=== PATIENT | male | born 1955 | race Caucasian/White ===

== ENCOUNTER 2023-05-06 14:37 | Inpatient (IN) | payer OTHER ==
[~2023-05-06] VITALS: Ht 180.3 cm; Wt 104.9 kg
[~2023-05-06 14:37] MED LIST: HYDACE5 PO; KETO10 PO; STOMACH MED
[2023-05-06] MEDS ORDERED: FURO20 PO (15:18)
[2023-05-06] MEDS ORDERED: LISI20 PO (15:18)
[2023-05-06] MEDS ORDERED: POTA8 PO (15:18)
[2023-05-06 15:58] LABS: BASOPHILS ABSOLUTE AUTO 0.03 K/mm3 (0.00-0.23); BASOPHILS PERCENT AUTO 0 % (0-2); EOSINOPHILS ABSOLUTE AUTO 0.11 K/mm3 (0.00-0.68); EOSINOPHILS PERCENT AUTO 2 % (0-6); Hematocrit 40.6 % (37.0-53.0); Hemoglobin 13.7 g/dL (13.5-17.5); IMMATURE GRAN ABSOLUTE AUTO 0.02 K/mm3 (0.00-0.10); IMMATURE GRAN PERCENT AUTO 0 % (0-1); LYMPHOCYTES ABSOLUTE AUTO 0.91 K/mm3 (0.84-5.20); LYMPHOCYTES PERCENT AUTO 13 % (21-46); MONOCYTES PERCENT AUTO 11 % (4-13); Mean Corpuscular HGB 30.4 pg (26.0-34.0); Mean Corpuscular HGB Conc 33.7 g/dL (31.5-36.5); Mean Corpuscular Volume 90 fL (80-100); Mean Platelet Volume 11.1 fL (9.1-12.4); NEUTROPHILS ABSOLUTE AUTO 5.41 K/mm3 (1.96-9.15); NEUTROPHILS PERCENT AUTO 74 % (41-73); Platelet Count 179 K/mm3 (150-400); RDW Coefficient Variation 14.1 % (11.7-14.2); RDW Standard Deviation 46.6 fL (35.1-46.3); White Blood Cell Count 7.28 K/mm3 (4.00-11.30)
[2023-05-06 16:09] LABS: Albumin, Blood 3.3 g/dL (3.4-5.0); Albumin/Globulin Ratio 0.8 (0.8-1.8); Bilirubin, Total 0.5 mg/dL (0.1-1.0); Bun/Creatinine Ratio 11.9 (12.0-20.0); Calcium, Blood 8.4 mg/dL (8.5-10.1); Creatinine, Blood 1.09 mg/dL (0.60-1.20); Globulin, Blood 4.1 g/dL (2.2-4.0); Potassium, Blood 3.2 mmol/L (3.5-5.5); Total Protein, Blood 7.4 g/dL (6.4-8.2)
[2023-05-06 17:07] LABS: Influenza A, PCR NEGATIVE (NEGATIVE); Influenza B, PCR NEGATIVE (NEGATIVE); SARS-Cov-2 (COVID-19) PCR, MMC NEGATIVE (NEGATIVE)
[2023-05-06 17:08] LABS: Resp Syncytial Virus, PCR POSITIVE (NEGATIVE)
[2023-05-07] MEDS ORDERED: VITAMIN D310 MC4 PO (07:57)
[2023-05-07 08:05] VITALS: BP 179/96
[2023-05-07 08:26] LABS: Bun/Creatinine Ratio 18.6 (12.0-20.0); Calcium, Blood 9.1 mg/dL (8.5-10.1); Creatinine, Blood 1.13 mg/dL (0.60-1.20); Potassium, Blood 3.6 mmol/L (3.5-5.5)
[2023-05-07 10:21] VITALS: BP 162/92
[2023-05-07 12:56] VITALS: BP 143/86
[2023-05-07 16:37] VITALS: BP 173/88
--- NOTE | 2023-05-07 17:50 | NUR ---
SHIFT SUMMARY. PT ARRIVED ON UNIT EARLY IN SHIFT. AOX4, PLEASANT, COOPERATIVE WITH CARE. SBA OOB TO COMMODE. USES URINAL INDEPENDENTLY. HAS NOT COMPLAINED OF PAIN SINCE ARRIVAL. TELE ON RUNNING NSR TO TACHYCARDIA WITH NO EVENTS THUS FAR. SATTING WELL ON 3 L O2 WHILE AWAKE. BIPAP AVAILABLE AT BEDSIDE IF NEEDED. BECOMES DYSPNEIC WITH EXERTION BUT IS ABLE TO CONTINUE TO BREATHE WELL AFTER BEING GIVEN TIME TO REST. HAS BEEN TACHYCARDIC THROUGHOUT SHIFT. HAS HAD CONSISTENT OUTPUT USING URINAL INDEPENDENTLY, LASIX ADMINISTERED ON SCHEDULE WITHOUT DIFFICULTY. NO COMPLAINTS OF PAIN THUS FAR. GOOD PO INTAKE. PRECAUTIONS FOR BEING RSV POSITIVE. SBP HAS SPORADICALLY BEEN >160MMHG BUT IS CONTROLLED VIA PRN IV HYDRALAZINE. USES CALL LIGHT APPROPRIATELY. BED LOCKED IN LOWEST POSITION. CALL LIGHT LEFT WITHIN REACH.
[2023-05-07 20:57] VITALS: BP 141/76
[2023-05-07 23:16] VITALS: BP 158/95
[2023-05-08 03:03] VITALS: BP 136/69
[2023-05-08 06:01] LABS: BASOPHILS ABSOLUTE AUTO 0.02 K/mm3 (0.00-0.23); BASOPHILS PERCENT AUTO 0 % (0-2); EOSINOPHILS ABSOLUTE AUTO 0.02 K/mm3 (0.00-0.68); EOSINOPHILS PERCENT AUTO 0 % (0-6); Hematocrit 43.9 % (37.0-53.0); Hemoglobin 14.6 g/dL (13.5-17.5); IMMATURE GRAN ABSOLUTE AUTO 0.15 K/mm3 (0.00-0.10); IMMATURE GRAN PERCENT AUTO 1 % (0-1); LYMPHOCYTES ABSOLUTE AUTO 0.49 K/mm3 (0.84-5.20); LYMPHOCYTES PERCENT AUTO 3 % (21-46); MONOCYTES ABSOLUTE AUTO 1.07 K/mm3 (0.16-1.47); MONOCYTES PERCENT AUTO 6 % (4-13); Mean Corpuscular HGB 30.2 pg (26.0-34.0); Mean Corpuscular HGB Conc 33.3 g/dL (31.5-36.5); Mean Corpuscular Volume 91 fL (80-100); Mean Platelet Volume 10.8 fL (9.1-12.4); NEUTROPHILS ABSOLUTE AUTO 16.69 K/mm3 (1.96-9.15); NEUTROPHILS PERCENT AUTO 91 % (41-73); Platelet Count 238 K/mm3 (150-400); RDW Coefficient Variation 14.6 % (11.7-14.2); RDW Standard Deviation 48.1 fL (35.1-46.3); Red Blood Cell Count 4.83 M/mm3 (4.30-5.90); White Blood Cell Count 18.44 K/mm3 (4.00-11.30)
[2023-05-08 06:23] LABS: BAND PERCENT MAN 4 % (0-8); BASOPHILS PERCENT MAN 0 % (0-2); EOSINOPHILS PERCENT MAN 0 % (0-6); LYMPHOCYTES ABSOLUTE MAN 0.36 K/mm3 (0.84-5.20); LYMPHOCYTES PERCENT MAN 2 % (21-46); MONOCYTES ABSOLUTE MAN 0.92 K/mm3 (0.16-1.47); MONOCYTES PERCENT MAN 5 % (4-13); NEUTROPHILS ABSOLUTE MAN 17.14 K/mm3 (1.96-9.15); SEG NEUTROPHILS PERCENT MAN 89 % (41-73); TOTAL CELLS COUNTED 100
[2023-05-08 06:38] LABS: Albumin, Blood 3.3 g/dL (3.4-5.0); Albumin/Globulin Ratio 0.8 (0.8-1.8); Bilirubin, Total 0.6 mg/dL (0.1-1.0); Bun/Creatinine Ratio 20.3 (12.0-20.0); Calcium, Blood 8.8 mg/dL (8.5-10.1); Creatinine, Blood 1.28 mg/dL (0.60-1.20); Globulin, Blood 4.4 g/dL (2.2-4.0); Potassium, Blood 3.5 mmol/L (3.5-5.5); Total Protein, Blood 7.7 g/dL (6.4-8.2)
--- NOTE | 2023-05-08 06:52 | NUR ---
SHIFT SUMMARY A/Ox4 AND COOPERATIVE WITH CARE. ANSWERS QUESTIONS APPROPRIALTEY AND ABLE TO MAKE HIS NEEDS KNOWN. NO ACUTE EVENTS OVERNIGHT. CARDIAC, REMAINS IN SR-ST 90-100's WITH NO COMPLAINTS OF CP OR PRESSURE T/O THE NIGHT. SBP CONTINUES TO BE SLIGHTLY ELEVATED RANGING 140-150's. RESPIRATORY, MAINTAINS SPO2 >90% ON 3L VIA OXYMIZER. INCREASED WORK OF BREATHING WITH RR RANGING 26-32. REPORTS INTERMITTENT SOB EVEN WHEN AT REST. DR. KIMBROUGH NOTIFIED WITH NO NEW ORDERS GIVEN. CONTINUES TO INTERMITTENTLY USE THE BiPAP 10/5 30% FiO2 WHEN FEELING MORE SOB OR WHEN SLEEPING. CONTINUES TO ENDORSE INTERMITTENT PLEURITIC PAIN. GI/, ABLE TO INDEPENDENTLY USE URINAL AT BEDSIDE. NO BM THIS SHIFT. ASSESSED PT FOR RISKS OF ANY IGNITION SOURCES WELL BEHAVIORS FOR INCREASED RISKS OF FIRE DANGER. PT EDUCATED ON COMMON SOURCES OF IGNITION WELL NEED TO KEEP A SAFE ENVIRONMENT. PT VOICED UNDERSTANDING. NO NEW ORDERS AT THIS TIME, WILL REPORT TO ONCOMING RN. TERESSA HERNÁNDEZ OF THIS NOTE.
[2023-05-08 08:30] VITALS: BP 159/85
[2023-05-08 11:56] VITALS: BP 162/86
--- NOTE | 2023-05-08 13:16 | NUR ---
Telephone report given to SOPHIA Ramon. Pt will be transferring to room 330 on Medical floor.
--- NOTE | 2023-05-08 13:38 | NUR ---
PT TRANSFERRED UP TO MEDICAL FLOOR IN BED.
[2023-05-08 13:42] VITALS: BP 147/85
[2023-05-08 14:44] VITALS: BP 165/85
[2023-05-08 19:43] VITALS: BP 152/86
--- NOTE | 2023-05-08 20:07 | NUR ---
SHIFT SUMMARY PATIENT GETS UP TO BATHROOM WITHOUT CALLING EVEN THOUGH AOX4, HE IS FORGETFUL AND NOT AWARE OF LIMITATIONS. PATIENT FOUND IN BATHROOM WITH OXYMIZER OFF, GIVEN NASAL CANULA TO REACH TO TOILET. PATIENT URINATED WITH SOME BRIGHT RED BLOOD MIXED WITH URINE. NO TRAUMA NOTED, NO SWELLING OR REDNESS. PENIS CLEANSED AND NO FURTHER BLEEDING NOTED. DR RAI, COVERING FOR DR VALENZUELA NOTIFIED OF BLOOD. PATIENT CONTINUES TO BE SHORT OF BREATH BUT STATES IT IS BETTER THAN IT WAS. BED IN LOW POSITION WITH BED ALARM ON.
--- NOTE | 2023-05-09 05:24 | NUR ---
SHIFT SUMMARY 68 YR M ADMITTED ON 05/06/23 FOR COPD EXACERBATION. FULL CODE. NO ACUTE CHANGES THIS SHIFT. PT HAS BEEN ASLEEP IN THE UPRIGHT POSITION FOR MOST OF THIS SHIFT. HE HAS BEEN USING THE BEDSIDE URINAL RATHER THAN GETTING UP TO THE BATHROOM. NO BLOOD NOTED IN URINE THIS SHIFT. PT IS PLEASANT AND COOPERATIVE WITH CARE. BED IN LOW POSITION AND CALL LIGHT IN REACH.
[2023-05-09 05:36] VITALS: BP 123/88
[2023-05-09 06:55] LABS: BASOPHILS ABSOLUTE AUTO 0.03 K/mm3 (0.00-0.23); BASOPHILS PERCENT AUTO 0 % (0-2); EOSINOPHILS ABSOLUTE AUTO 0.01 K/mm3 (0.00-0.68); EOSINOPHILS PERCENT AUTO 0 % (0-6); Hematocrit 45.2 % (37.0-53.0); Hemoglobin 14.9 g/dL (13.5-17.5); IMMATURE GRAN ABSOLUTE AUTO 0.06 K/mm3 (0.00-0.10); IMMATURE GRAN PERCENT AUTO 1 % (0-1); LYMPHOCYTES ABSOLUTE AUTO 0.71 K/mm3 (0.84-5.20); LYMPHOCYTES PERCENT AUTO 6 % (21-46); MONOCYTES ABSOLUTE AUTO 0.45 K/mm3 (0.16-1.47); MONOCYTES PERCENT AUTO 4 % (4-13); Mean Corpuscular Volume 91 fL (80-100); Mean Platelet Volume 11.4 fL (9.1-12.4); NEUTROPHILS ABSOLUTE AUTO 10.83 K/mm3 (1.96-9.15); NEUTROPHILS PERCENT AUTO 90 % (41-73); Platelet Count 190 K/mm3 (150-400); RDW Coefficient Variation 14.5 % (11.7-14.2); RDW Standard Deviation 48.3 fL (35.1-46.3); Red Blood Cell Count 4.96 M/mm3 (4.30-5.90); White Blood Cell Count 12.09 K/mm3 (4.00-11.30)
[2023-05-09 07:30] VITALS: BP 146/90
[2023-05-09 07:32] LABS: Albumin, Blood 2.7 g/dL (3.4-5.0); Albumin/Globulin Ratio 0.6 (0.8-1.8); Bilirubin, Total 0.7 mg/dL (0.1-1.0); Bun/Creatinine Ratio 26.1 (12.0-20.0); Calcium, Blood 9.2 mg/dL (8.5-10.1); Creatinine, Blood 1.15 mg/dL (0.60-1.20); Globulin, Blood 4.7 g/dL (2.2-4.0); Potassium, Blood 4.3 mmol/L (3.5-5.5); Total Protein, Blood 7.4 g/dL (6.4-8.2)
[2023-05-09 14:51] LABS: Source, Urine Clean Catch
[2023-05-09 15:15] LABS: Bilirubin, Urine Neg (Neg); Blood, Urine 5+ (Neg); Color, Urine Yellow (P-Yellow); Glucose Qualitative, Urine Neg (Neg); Ketones, Urine Neg (Neg); Leukocyte Esterase, Urine Neg (Neg); Nitrite, Urine Neg (Neg); Protein, Urine 2+ (Neg); Urobilinogen, Urine NORM (Normal)
[2023-05-09 15:29] LABS: Appearance, Urine Hazy (Clear); Squamous Epithelial Cells Few /hpf (Few)
[2023-05-09 15:30] LABS: Amorphous Light (0-Heavy); Bacteria Few /hpf
[2023-05-09 15:31] LABS: Mucus Light (0-Heavy)
[2023-05-09 15:37] VITALS: BP 133/76
--- NOTE | 2023-05-09 18:42 | NUR ---
SHIFT SUMMARY PT INDEPENDENT IN ROOM. SITTING UP IN BED MOST OF THE DAY. SHORT OF BREATH EVEN WHILE RESTING IN THE BED. DENIES PAIN OR NAUSEA. O2 AT 4L/M BY NC. HAS SMALL AMOUNT OF BLEEDING WITH URINATING. STATES HES HAD IT IN THE PAST AND WAS WORSE. DENIED ANY CLOTS PASSED.
[2023-05-09 19:58] VITALS: BP 136/83
[2023-05-10 03:47] VITALS: BP 151/84
[2023-05-10 07:03] LABS: Hematocrit 44.3 % (37.0-53.0); Hemoglobin 14.6 g/dL (13.5-17.5); Mean Corpuscular HGB 30.3 pg (26.0-34.0); Mean Corpuscular Volume 92 fL (80-100); Mean Platelet Volume 11.1 fL (9.1-12.4); Platelet Count 201 K/mm3 (150-400); RDW Coefficient Variation 14.1 % (11.7-14.2); RDW Standard Deviation 47.7 fL (35.1-46.3); Red Blood Cell Count 4.82 M/mm3 (4.30-5.90); White Blood Cell Count 9.88 K/mm3 (4.00-11.30)
[2023-05-10 07:29] LABS: Albumin, Blood 2.5 g/dL (3.4-5.0); Albumin/Globulin Ratio 0.5 (0.8-1.8); Bilirubin, Total 0.4 mg/dL (0.1-1.0); Bun/Creatinine Ratio 36.8 (12.0-20.0); Creatinine, Blood 1.25 mg/dL (0.60-1.20); Globulin, Blood 4.7 g/dL (2.2-4.0); Potassium, Blood 4.3 mmol/L (3.5-5.5); Total Protein, Blood 7.2 g/dL (6.4-8.2)
--- NOTE | 2023-05-10 07:31 | NUR ---
Shift Summary Pt continued SoB while laying in bed, frequent productive cough and wheezy lungs. Denies pain and nausea. On 4L O2 NC. No blood in his urine tonight. Independent in room, using urinal for voids.
[2023-05-10 07:41] LABS: BASOPHILS PERCENT MAN 0 % (0-2); EOSINOPHILS PERCENT MAN 0 % (0-6); LYMPHOCYTES ABSOLUTE MAN 0.79 K/mm3 (0.84-5.20); LYMPHOCYTES PERCENT MAN 8 % (21-46); MONOCYTES ABSOLUTE MAN 0.39 K/mm3 (0.16-1.47); MONOCYTES PERCENT MAN 4 % (4-13); NEUTROPHILS ABSOLUTE MAN 8.69 K/mm3 (1.96-9.15); SEG NEUTROPHILS PERCENT MAN 88 % (41-73); TOTAL CELLS COUNTED 100
[2023-05-10 07:49] VITALS: BP 148/88
[2023-05-10 14:32] VITALS: BP 149/87
--- NOTE | 2023-05-10 16:07 | NUR ---
SHIFT SUMMARY: DESTINY IS A&OX4. VSS, NO ACUTE EVENTS THIS SHIFT. LUNGS CONGESTED, MAINTAINING SATS ON 4 L VIA NC. PT DOES NOT USE O2 AT BASELINE. HE IS INDEPENDENT IN THE ROOM, TOLERATING PO INTAKE WELL, IV TO LEFT HAND PATENT. CHRONIC VENOUS STASIS CHANGES TO BLE. PT IS CONTINENT OF BLADDER AND BOWEL. HE IS LYING IN BED WITH THE CALL LIGHT IN REACH. REPORT WAS GIVEN TO RN ASSUMING CARE.
--- NOTE | 2023-05-10 16:31 | NUR ---
NOTE: RECEIVED REPORT FRON SOPHIA VALADEZ. ASSUME CARE OF PATIENT AT 1530. NO NEW CHANGES IN PATIENT CONDITION. PATIENT IS A/OX4. CALM, PLEASANT AND COOPERATIVE c CARE PROVIDED. ON 4L OF O2 VIA NC. DENIES SOB. RR IS EVEN AND UNLABORED. PATIENT INDEPENDENT IN ROOM. CALL LIGHT IN REACH.
[2023-05-10 20:00] VITALS: BP 162/100
[2023-05-11 04:07] VITALS: BP 177/98
[2023-05-11 06:02] LABS: Hematocrit 47.6 % (37.0-53.0); Hemoglobin 16.1 g/dL (13.5-17.5); Mean Corpuscular HGB 30.5 pg (26.0-34.0); Mean Corpuscular HGB Conc 33.8 g/dL (31.5-36.5); Mean Corpuscular Volume 90 fL (80-100); Mean Platelet Volume 11.1 fL (9.1-12.4); Platelet Count 238 K/mm3 (150-400); RDW Standard Deviation 46.6 fL (35.1-46.3); Red Blood Cell Count 5.28 M/mm3 (4.30-5.90)
[2023-05-11 06:20] LABS: BAND PERCENT MAN 1 % (0-8); BASOPHILS PERCENT MAN 0 % (0-2); EOSINOPHILS PERCENT MAN 0 % (0-6); LYMPHOCYTES ABSOLUTE MAN 0.68 K/mm3 (0.84-5.20); LYMPHOCYTES PERCENT MAN 6 % (21-46); MONOCYTES ABSOLUTE MAN 0.45 K/mm3 (0.16-1.47); MONOCYTES PERCENT MAN 4 % (4-13); NEUTROPHILS ABSOLUTE MAN 10.26 K/mm3 (1.96-9.15); SEG NEUTROPHILS PERCENT MAN 89 % (41-73); TOTAL CELLS COUNTED 100
[2023-05-11 06:35] LABS: Albumin, Blood 2.6 g/dL (3.4-5.0); Albumin/Globulin Ratio 0.5 (0.8-1.8); Bilirubin, Total 0.8 mg/dL (0.1-1.0); Bun/Creatinine Ratio 40.9 (12.0-20.0); Creatinine, Blood 1.1 mg/dL (0.60-1.20); Globulin, Blood 4.8 g/dL (2.2-4.0); Potassium, Blood 4.2 mmol/L (3.5-5.5); Total Protein, Blood 7.4 g/dL (6.4-8.2)
[2023-05-11 07:33] VITALS: BP 166/88
--- NOTE | 2023-05-11 07:33 | NUR ---
Shift Summary No changes until this morning, pt had rapid respirations and was having difficulty breathing. I called RT and put him on Oxymizer at 10L/min to maintane O2>90%. His lungs were wet sounding, I called the hospitalist who ordered a one time dose of IV Lasix and a chest X-Ray. Pt is currently on 5L O2 via oxymizer and says breathing is still difficult. OT Lasix given at 0642. Handed off information to oncoming RN.
--- NOTE | 2023-05-11 11:36 | NUR ---
PATIENT LEFT THE ROOM AT AROUND 1133 TO IMAGING.
[2023-05-11 15:58] VITALS: BP 151/81
--- NOTE | 2023-05-11 16:18 | NUR ---
SHIFT SUMMARY: PATIENT A/OX4. PLEASANT AND COOPERATIVE c CARE PROVIDED. PATIENT DENIES CP/PRESSURE, N/V AND GENERALIZED PAIN. PATIENT REPORTS SOB WHILE SITTING UP IN THE CHAIR. PATIENT PLACED ON 5-7L O2 VIA OXYMIZER WHEN EATING, OTHERWISE ON BIPAP c CPAP SETTINGS 5L BLEED IN O2 c SPO2 RANGES 89-94, APPEARS ON CONTINUES PULSE OX IN ROOM. PATIENT CONTINENCE OF URINE, AMBULATES TO BATHROOM AND SOMETIMES USES URINAL AT BEDSIDE. PATIENT HAS RED/PINKISH BLOOD IN URINE, DR. BROOKE IS AWARE OF THIS ISSUE'S. PER DR. BROOKE TO CONTINUE MONITOR T/O SHIFT. PATIENT ON TELE, SR HR IN THE HIGH 80'S BPM. HYPERTENSIVE, RECEIVED SCHEDULED MEDS AND IV ABX PER EMAR. VITAL SIGNS REVIEWED. PIV TO RAC AND L HAND SALINE LOCKED. CALL LIGHT IN REACH.
[2023-05-11 19:01] VITALS: BP 162/91
[2023-05-12 02:59] VITALS: BP 146/90
--- NOTE | 2023-05-12 05:34 | NUR ---
SHIFT SUMMARY PT IS A&O4, SB TO THE BR, 4L OXIMIZER AND BIPAP OVERNIGHT WITH SATS LOW TO MID 90'S, NO COMPLAITNS OF PAIN OR DISCOMFORT THIS SHIFT, CONTINUE POC
[2023-05-12 06:25] LABS: BASOPHILS ABSOLUTE AUTO 0.07 K/mm3 (0.00-0.23); BASOPHILS PERCENT AUTO 1 % (0-2); EOSINOPHILS ABSOLUTE AUTO 0.06 K/mm3 (0.00-0.68); EOSINOPHILS PERCENT AUTO 1 % (0-6); Hematocrit 43.3 % (37.0-53.0); Hemoglobin 14.2 g/dL (13.5-17.5); IMMATURE GRAN ABSOLUTE AUTO 0.22 K/mm3 (0.00-0.10); IMMATURE GRAN PERCENT AUTO 2 % (0-1); LYMPHOCYTES ABSOLUTE AUTO 1.01 K/mm3 (0.84-5.20); LYMPHOCYTES PERCENT AUTO 10 % (21-46); MONOCYTES ABSOLUTE AUTO 0.58 K/mm3 (0.16-1.47); MONOCYTES PERCENT AUTO 6 % (4-13); Mean Corpuscular HGB 30.2 pg (26.0-34.0); Mean Corpuscular HGB Conc 32.8 g/dL (31.5-36.5); Mean Corpuscular Volume 92 fL (80-100); Mean Platelet Volume 11.8 fL (9.1-12.4); NEUTROPHILS PERCENT AUTO 80 % (41-73); Platelet Count 186 K/mm3 (150-400); RDW Coefficient Variation 14.3 % (11.7-14.2); RDW Standard Deviation 48.4 fL (35.1-46.3); White Blood Cell Count 9.74 K/mm3 (4.00-11.30)
[2023-05-12 06:41] LABS: Bun/Creatinine Ratio 42.8 (12.0-20.0); Calcium, Blood 8.6 mg/dL (8.5-10.1); Creatinine, Blood 0.96 mg/dL (0.60-1.20); Potassium, Blood 4.4 mmol/L (3.5-5.5)
[2023-05-12 07:15] VITALS: BP 156/81
[2023-05-12 16:38] VITALS: BP 150/74
--- NOTE | 2023-05-12 18:37 | NUR ---
SHIFT SUMMARY PT AxOx4. PLEASANT AND COOPERATIVE WITH CARE. CALLED APPROPRIATELY. PT'S O2 NEEDS DECREASED TO 2L O2 VIA NC. PT LS ARE COARSE/WHEEZY T/O. RESP THERAPY IN FOR BREATHING TX THIS SHIFT. PT ALSO HAD IV STEROIDS AND IV ABX TODAY. PT DENIES PAIN TODAY. PER TELE, TELE RUNNING SINUS RHYTHM AT 82. PT'S BLOOD GLUCOSE ELEVATED THIS SHIFT. PT EDUCATION PROVIDED AFTER VISITOR BROUGHT A MILKSHAKE IN. PT IS CURRENTLY SITTING UP IN BED WATCHING TV. DENIES ANY NEEDS AT THIS TIME. CALL LIGHT IN REACH.
[2023-05-12 19:08] VITALS: BP 151/83
[2023-05-13 03:59] VITALS: BP 159/91
--- NOTE | 2023-05-13 06:29 | NUR ---
SHIFT SUMMARY PT IS A&O4, INDEPENDENT IN THE ROOM, 2L OXIMIZER WITH SATS IN UPPER 90'S, NO COMPLAINT SOF PAIN OVERNIGHT OR ACUTE EVENTS CONTINUE POC
[2023-05-13 08:00] VITALS: BP 169/100
[2023-05-13 15:42] VITALS: BP 152/96
--- NOTE | 2023-05-13 19:27 | NUR ---
PT IS A/OX4, PLEASANT AND COOPERATIVE. UP IND IN HIS ROOM. THE PT WAS EVALUATED BY THE PHYSICAL THERAPIST TODAY ORDERED. PER PT THE PT IS IND IN HIS ROOM. THE PT IS ON 2L/MIN O2 TO KEEP SAT'S >90%. PT USES THE CALL LIGHT APPROPRIATLY. PT DENIED ANY PAIN T/O THE DAY, CALL LIGHT IN REACH.
[2023-05-13 21:00] VITALS: BP 158/87
[2023-05-14 04:17] VITALS: BP 158/87
[2023-05-14 05:03] LABS: Hematocrit 43.5 % (37.0-53.0); Hemoglobin 14.3 g/dL (13.5-17.5); Mean Corpuscular HGB 29.8 pg (26.0-34.0); Mean Corpuscular HGB Conc 32.9 g/dL (31.5-36.5); Mean Corpuscular Volume 91 fL (80-100); Platelet Count 214 K/mm3 (150-400); RDW Coefficient Variation 13.7 % (11.7-14.2); White Blood Cell Count 16.27 K/mm3 (4.00-11.30)
[2023-05-14 05:43] LABS: Albumin, Blood 2.2 g/dL (3.4-5.0); Albumin/Globulin Ratio 0.5 (0.8-1.8); Bilirubin, Total 0.4 mg/dL (0.1-1.0); Calcium, Blood 8.4 mg/dL (8.5-10.1); Globulin, Blood 4.1 g/dL (2.2-4.0); Total Protein, Blood 6.3 g/dL (6.4-8.2)
[2023-05-14 05:51] LABS: BAND PERCENT MAN 1 % (0-8); BASOPHILS PERCENT MAN 0 % (0-2); EOSINOPHILS ABSOLUTE MAN 0.16 K/mm3 (0.00-0.68); EOSINOPHILS PERCENT MAN 1 % (0-6); LYMPHOCYTES ABSOLUTE MAN 0.97 K/mm3 (0.84-5.20); LYMPHOCYTES PERCENT MAN 6 % (21-46); MONOCYTES ABSOLUTE MAN 0.81 K/mm3 (0.16-1.47); MONOCYTES PERCENT MAN 5 % (4-13); MYELOCYTE PERCENT MAN 8 % (0-0); NEUTROPHILS ABSOLUTE MAN 13.01 K/mm3 (1.96-9.15); SEG NEUTROPHILS PERCENT MAN 79 % (41-73); TOTAL CELLS COUNTED 100
--- NOTE | 2023-05-14 06:51 | NUR ---
SHIFT SUMMARY PT SITTING UP IN CHAIR DURING BEDSIDE ROUNDS, PT ON DROPLET PRECAUTIONS, PT INDEPENDENT IN ROOM - PT ON 2L OXYGEN- PT REQUESTED MULTIPLE SNACK T/O NIGHT, ENCOURAGED SF SNACKS D/T ELEVATED GLUCOSE LEVELS- PT STATED UNDERSTANDING- PT SLEPT T/O NIGHT, PT CALLED APPROPRIATE
[2023-05-14 07:51] VITALS: BP 156/94
[2023-05-14 15:23] VITALS: BP 168/98
--- NOTE | 2023-05-14 16:33 | NUR ---
PT IS A/OX4, PLEASANT AND COOPERATIVE. THE PT IS UP IND IN HIS ROOM. THE PT WAS TITRATED OFF O2 THIS AM AND HAS BEEN MAINTAING SAT'S IN THE LOW 90%'S. THE PT WALKED USEING THE FWW WALKER FOR APROXIMATLY 360 FEET THE LOWEST SAT READING WAS 89%, ONLY FOR A SHORT TIME, OTHERWISE, MAINTAINED 90% WHILE AMBULATING. THE PT DENIED ANY PAIN. PT WAS UP AND SHOWERED TODAY. CALL LIGHT IN REACH
[2023-05-14 19:42] VITALS: BP 151/75
[2023-05-15 02:22] VITALS: BP 156/83
--- NOTE | 2023-05-15 06:44 | NUR ---
SHIFT SUMMARY PT SITTING UP IN CHAIR DURING BEDSIDE ROUNDS, PT ON DROPLET PRECAUSTIONS- PT STATED AT BEGINNING OF SHIFT HE WANTED TO GO HOME, PT STATED TO THIS RN THIS AM THAT HE WASN'T SURE IF HE SHOULD GO HOME- PT REPORTED FEELING WEAK- ENCOURAGED PT TO TALK TO DR. ASHLEY: AND THAT I WILL PASS ON TO DAYSHIFT NURSE- PT TOOK MEDICATIONS AND INSULIN T/O NIGHT- PT INDEPENDENT IN ROOM
[2023-05-15 06:53] LABS: Albumin, Blood 2.3 g/dL (3.4-5.0); Albumin/Globulin Ratio 0.6 (0.8-1.8); Bilirubin, Total 0.4 mg/dL (0.1-1.0); Bun/Creatinine Ratio 39.2 (12.0-20.0); Calcium, Blood 8.3 mg/dL (8.5-10.1); Creatinine, Blood 1.02 mg/dL (0.60-1.20); Globulin, Blood 3.9 g/dL (2.2-4.0); Potassium, Blood 4.6 mmol/L (3.5-5.5); Total Protein, Blood 6.2 g/dL (6.4-8.2)
[2023-05-15 07:15] LABS: Hematocrit 45.4 % (37.0-53.0); Mean Corpuscular HGB 29.8 pg (26.0-34.0); Mean Corpuscular Volume 90 fL (80-100); Mean Platelet Volume 11.8 fL (9.1-12.4); Platelet Count 202 K/mm3 (150-400); RDW Coefficient Variation 13.9 % (11.7-14.2); RDW Standard Deviation 45.8 fL (35.1-46.3); Red Blood Cell Count 5.03 M/mm3 (4.30-5.90); White Blood Cell Count 16.96 K/mm3 (4.00-11.30)
[2023-05-15 07:58] VITALS: BP 166/95
[2023-05-15 08:44] LABS: BAND PERCENT MAN 3 % (0-8); BASOPHILS PERCENT MAN 0 % (0-2); EOSINOPHILS ABSOLUTE MAN 0.16 K/mm3 (0.00-0.68); EOSINOPHILS PERCENT MAN 1 % (0-6); LYMPHOCYTES ABSOLUTE MAN 1.86 K/mm3 (0.84-5.20); LYMPHOCYTES PERCENT MAN 11 % (21-46); METAMYELOCYTE PERCENT MAN 3 % (0-0); MONOCYTES ABSOLUTE MAN 0.84 K/mm3 (0.16-1.47); MONOCYTES PERCENT MAN 5 % (4-13); NEUTROPHILS ABSOLUTE MAN 13.56 K/mm3 (1.96-9.15); SEG NEUTROPHILS PERCENT MAN 77 % (41-73); TOTAL CELLS COUNTED 100
[2023-05-15] MEDS ORDERED: ALBU2.5V5 INH (11:25)
[2023-05-15] MEDS ORDERED: ALBU90OI INH (11:26)
[2023-05-15] MEDS ORDERED: IPRAT-ALBUT 0.5-3 ML INH (11:26)
[2023-05-15] MEDS ORDERED: PRED20 PO (11:27)
[2023-05-15] MEDS ORDERED: AMOCLA875 PO (11:27)
--- NOTE | 2023-05-15 11:58 | NUR ---
PT DISCHARGED HOME. ALERT AND ORIENTED X4. R/A. DR. PABLO CANCELLED HOME O2 EVAL. PT sat 89% WALKING ON R/A. QUICKLY RETURNS SAT>90%. NO QUESTIONS OR CONCERNS AT TIME OF DISCHARGE. DISCUSSED DISCHARGE INSTRUCTIONS WITH PT.
== END 2023-05-15 11:43 | disposition home or self-care (01) | DRG 291 ==
LOC: ER 14:37 → ERHOLD 17:18 → PCU 05-07 07:42 → MEDS 05-08 14:15 → ENPENDDIS 05-15 10:32 → MEDS 05-15 11:43
PROVIDERS: Emergency Medicine; Family Medicine; ADMIT Internal Medicine
PROC: 5A09357 Assistance with Respiratory Ventilation, Less than 24 Consecutive Hours, Continuous Positive Airway Pressure (ICD-10-PCS; principal; 2023-05-06)
DX: I11.0 Hypertensive heart disease with heart failure (principal); I50.33 Acute on chronic diastolic (congestive) heart failure; J96.01 Acute respiratory failure with hypoxia; J15.9 Unspecified bacterial pneumonia; J45.901 Unspecified asthma with (acute) exacerbation; R94.5 Abnormal results of liver function studies; I16.0 Hypertensive urgency; E11.9 Type 2 diabetes mellitus without complications; E87.6 Hypokalemia; B97.4 Respiratory syncytial virus as the cause of diseases classified elsewhere; F41.9 Anxiety disorder, unspecified; Z11.52 Encounter for screening for COVID-19; Z87.891 Personal history of nicotine dependence
CPT/HCPCS: 0241U; 36415; 71045; 71046; 71260; 80048; 80053; 81001; 82947; 83036; 83735; 83880; 84145; 84484; 85025; 87086; 93005; 93010; 93306; 94640; 94660; 94664; 94760; 94762; 96365; 96366; 96375; 96375-59; 96376-59; 97161; 97530; 99285-25; A9270; C9113; J0360; J0696; J1650; J1815; J1940; J2060; J2930; J3480; J7050; J7512; Q9967